=== PATIENT | male | born 1970 | race Caucasian/White ===

== ENCOUNTER 2022-04-22 18:13 | Emergency (ER) | payer MEDICAID ==
[~2022-04-22] VITALS: Ht 185.4 cm; Wt 127.0 kg
[2022-04-22 18:47] VITALS: BP 141/87
[2022-04-22] MEDS ORDERED: KETOROLAC 30 MG/ML VIAL IM ONE (19:20)
[2022-04-22] MEDS ORDERED: MECLIZINE 25 MG TAB PO ONE (19:20)
[2022-04-22] MEDS ORDERED: ONDANSETRON 4 MG ODT PO ONE (19:20)
[2022-04-22 19:38] LABS: BASOPHILS # (AUTO) 0.1 K/uL (0.00-0.22); BASOPHILS % (AUTO) 1.2 % (0.0-2.0); EOSINOPHILS # (AUTO) 0.3 K/uL (0-0.4); EOSINOPHILS % (AUTO) 5.2 % (0.0-4.0); HEMATOCRIT 43.5 % (36-52); HEMOGLOBIN 15.7 g/dL (12.0-18.0); LYMPHOCYTES # (AUTO) 2.3 K/uL (2.0-11.5); LYMPHOCYTES % (AUTO) 35.4 % (20.5-51.1); MEAN CORPUSCULAR HEMOGLOBIN 32 pg (27-31); MEAN CORPUSCULAR HGB CONC 36 g/dL (33-37); MEAN CORPUSCULAR VOLUME 87.3 fL (80-94); MONOCYTES # (AUTO) 0.8 K/uL (0.8-1.0); MONOCYTES % (AUTO) 12.3 % (1.7-9.3); NEUTROPHILS % (AUTO) 45.9 % (42.2-75.2); PLATELET COUNT (AUTO) 230 K/uL (140-450); RED BLOOD CELL COUNT(AUTO) 4.99 MIL/uL (4.20-6.10); RED CELL DISTRIBUTION WIDTH 13.5 % (11.6-13.7); WHITE BLOOD COUNT (AUTO) 6.6 K/uL (4.8-10.8)
[2022-04-22 19:57] LABS: ALBUMIN 4.2 g/dL (3.4-5.0); ANION GAP 12.5 (8-16); CARBON DIOXIDE 28.6 mmol/L (21-32); CREATININE 0.9 mg/dL (0.6-1.3); PHOSPHORUS 4.2 mg/dL (2.5-4.9); POTASSIUM 4.1 mmol/L (3.5-5.1); TOTAL BILIRUBIN 1.3 mg/dL (0.0-1.0)
--- NOTE | 2022-04-22 20:09 | NUR ---
Dr. Mcneil examining patient.
[2022-04-22] MEDS ORDERED: KETOROLAC 30 MG/ML VIAL ONE (20:23)
[2022-04-22] MEDS ORDERED: MECLIZINE 25 MG TAB ONE (20:25)
[2022-04-22] MEDS ORDERED: ONDANSETRON 4 MG ODT ONE (20:26)
[2022-04-22] MEDS ORDERED: ONDA-188 SL (20:28)
[2022-04-22] MEDS ORDERED: MECL-303 PO (20:28)
--- NOTE | 2022-04-22 20:35 | NUR ---
Patient discharged with v/s stable. Written and verbal after care instructions given and explained. Patient alert, oriented and verbalized understanding of instructions. Ambulatory with steady gait. All questions addressed prior to discharge. ID band removed. Patient advised to follow up with PMD. Rx of ANTIVERT, ZOFRAN given. Patient educated on indication of medication including possible reaction and side effects. Opportunity to ask questions provided and answered.
[2022-04-22 20:39] VITALS: BP 141/87
== END 2022-04-22 20:35 | disposition home or self-care (01) ==
LOC: MED 18:13
DX: H81.10 Benign paroxysmal vertigo, unspecified ear (principal); R42 Dizziness and giddiness; R11.0 Nausea; R00.2 Palpitations; F12.90 Cannabis use, unspecified, uncomplicated; Z79.899 Other long term (current) drug therapy; Z98.890 Other specified postprocedural states
CPT/HCPCS: 36415; 80053; 83690; 83735; 84100; 84484; 85025; 96372; 99283; J1885; J8597; Q0162; 87086